=== PATIENT | female | born 1980 | race Caucasian/White ===

== ENCOUNTER 2016-09-29 07:10 | Emergency (ER) | payer OTHER ==
[~2016-09-29] VITALS: Ht 160 cm; Wt 67.0 kg
[2016-09-29 07:12] VITALS: Ht 160 cm; Wt 67.0 kg
[2016-09-29] MEDS ORDERED: morphine 4 MG/ML VIAL IV STA (07:35)
[2016-09-29] MEDS ORDERED: SOD CHLORIDE 0.9% 1,000 ML IV STA (07:35)
[2016-09-29] MEDS ORDERED: ONDANSETRON 4 MG INJ IV STA (07:35)
[2016-09-29] MEDS ORDERED: HYDROmorphONE 1 MG/ML SYG IV STA (08:14)
[2016-09-29 08:28] LABS: ADD SCAN DIFF NO
--- NOTE | 2016-09-29 08:32 | ERD ---
ER Documentation Chief Complaint Date/Time DATE: 09/29/16 TIME: 08:29 Chief Complaint AP, HX FIBROIDS HPI This is a 36-year-old female history of fibroids presenting to the emergency department complaining of severe abdominal pain in the lower quadrant since this morning. Patient rates the pain as sharp,crampy 10 out of 10 and describes it as unbearable. Patient denies nausea, vomiting, diarrhea, constipation. She states her last meal was last night. She states that she had a bowel movement earlier today and was normal. Patient states that she took 800 mg of ibuprofen about an hour ago. She states that she just started taking Wellbutrin about 1 week ago. Patient states that she has a large fibroid in which she is in the process of trying to get outpatient hysterectomy however it has been taking too long for her. She states that she has been on her menstrual period for about more than 1 week and states that she uses 4 tampons per day. She states " I am worried it is my appendix." ROS All systems reviewed and are negative except as per history of present illness. Medications Home Meds Active Scripts Ibuprofen* (Ibuprofen*) 800 Mg Tab, 800 MG PO Q6H Y for PAIN, #30 TAB Prov:GRISELDA LARA PA-C 09/29/16 Hydrocodone/Acetaminophen ([place] 5-325 Tablet) 1 Each Tablet, 1 EACH PO Q6, #10 TAB Prov:GRISELDA LARA PA-C 09/29/16 Physical Exam Vitals Vital Signs Date Time Temp Pulse Resp B/P Pulse Ox O2 Delivery O2 Flow Rate FiO2 09/29/16 07:12 98.1 68 18 140/66 99 Physical Exam GENERAL: well-developed/well-nourished, in no apparent distress, non-toxic appearing HENT: NC/AT, moist mucous membranes EYES: Conjunctiva normal NECK: Supple, no lymphadenopathy PULM: CTA bilaterally, no rales, rhonchi, or wheezing heard CV: Normal S1S2, RRR, good capillary refill GI: Soft, non-distended, tender to palpation in all quadrants, mostly in the pelvic region Normal bowel sounds, no masses or organomegaly felt on exam No gross peritonitis, no bruits Negative Rovsing, negative Armijo, negative McBurney's point, Negative CVAT BACK: No masses EXT: No clubbing, cyanosis, or edema NEURO: Alert and Orientated SKIN: Intact, normal turgor PSYCH: Normal mood and mentation Result Diagram: 09/29/16 0819 09/29/16 0819 Results 24 hrs Laboratory Tests Test 09/29/16 08:15 09/29/16 08:19 Urine Color LT. YELLOW Urine Clarity CLEAR Urine pH 6.0 Urine Specific [place] 1.020 Urine Ketones 40 Urine Nitrite NEGATIVE Urine Bilirubin 1+ Urine Ictotest NEGATIVE Urine Urobilinogen 0.2 E.U./dL Urine Leukocyte Esterase NEGATIVE Urine Hemoglobin NEGATIVE Urine Glucose NEGATIVE% Urine Total Protein NEGATIVE White Blood Count 13.110^3/ul Red Blood Count 4.1310^6/ul Hemoglobin 13.6g/dl Hematocrit 40.0% Mean Corpuscular Volume 96.9fl Mean Corpuscular Hemoglobin 32.9pg Mean Corpuscular Hemoglobin Concent 34.0g/dl Red Cell Distribution Width 12.6% Platelet Count 35221^3/UL Mean Platelet Volume 11.3fl Neutrophils % 88.3% Lymphocytes % 5.7% Monocytes % 4.6% Eosinophils % 0.7% Basophils % 0.2% Nucleated Red Blood Cells % 0.0/100WBC Neutrophils # 11.510^3/ul Lymphocytes # 0.810^3/ul Monocytes # 0.610^3/ul Eosinophils # 0.110^3/ul Basophils # 0.010^3/ul Nucleated Red Blood Cells # 0.010^3/ul Sodium Level 141mmol/L Potassium Level 4.0mmol/L Chloride Level 104mmol/L Carbon Dioxide Level 22mmol/L Anion Gap 19 Blood Urea Nitrogen 17mg/dl Creatinine 0.59mg/dl Glucose Level 98mg/dl Calcium Level 9.1mg/dl Total Bilirubin 0.2mg/dl Direct Bilirubin 0.00mg/dl Indirect Bilirubin 0.2mg/dl Aspartate Amino Transf (AST/SGOT) 16IU/L Alanine Aminotransferase (ALT/SGPT) 22IU/L Alkaline Phosphatase 75IU/L Total Protein 7.8g/dl Albumin 3.9g/dl Globulin 3.90g/dl Albumin/Globulin Ratio 1.00 Lipase 24U/L Current Medications Medications (Trade) Dose Ordered Sig/Yoel Route PRN Reason Start Time Stop Time Status Last Admin Dose Admin Sodium Chloride (NS) 1,000 ml @ 1,000 mls/hr Q1H STAT IV 09/29/16 07:35 09/29/16 08:34 DC 09/29/16 08:02 Morphine Sulfate (morphine) 6 mg ONCE STAT IV 09/29/16 07:35 09/29/16 07:39 DC 09/29/16 08:03 Ondansetron HCl (Zofran Inj) 4 mg ONCE STAT IV 09/29/16 07:35 09/29/16 07:39 DC 09/29/16 08:05 Hydromorphone HCl (Dilaudid) 0.5 mg ONCE STAT IV 09/29/16 08:14 09/29/16 08:15 DC 09/29/16 08:20 IV Flush 10 ml 10 ml STK-MED ONCE .ROUTE 09/29/16 09:02 09/29/16 09:03 DC Sodium Chloride (NS) 100 ml @ ud STK-MED ONCE .ROUTE 09/29/16 09:02 09/29/16 09:03 DC Iohexol (Omnipaque 300mg/ ml) 150 ml STK-MED ONCE .ROUTE 09/29/16 09:02 09/29/16 09:03 DC Procedures/MDM This is a 36-year-old female history of fibroids presenting to the emergency department complaining of severe abdominal pain in the lower quadrant since this morning, likely due to her uterine fibroids and right ovarian hemorrhagic cyst. There was no evidence of appendicitis, diverticulitis, small or large bowel obstruction, ovarian torsion or ruptured ovarian cyst at this time. IV access was established in the ED, patient was given Dilaudid, morphine and Zofran. Patient's pain stabilized in the ED. Lab work was drawn. CBC showed mild leukocytosis likely due to stress reaction. CMP did not show any evidence of renal, liver, or electrolyte abnormalities. Lipase was normal. UA did not show any evidence of hemoglobin or urinary tract infection. Patient will need to follow-up with [facility] for [facility] outpatient. Patient is stable for discharge her home with precautions to return to emergency room for any worsening signs or symptoms. Patient understands and agrees with this plan CT abd and pelvis without contrast: 1. CT findings which may represent a leiomyomatous uterus with a right adnexal cystic structure. Further evaluation with a pelvic ultrasound is recommended. 2. Mild amount of free fluid. 3. Stool filled large bowel. 4. Intrauterine device identified. Pelvic ultrasound: 1. The uterus is enlarged and demonstrates multiple fibroids measuring up to 6.8 cm. 2. IUD is seen within the lower uterine segment. The endometrium is not well evaluated, as above. 3. Right ovary demonstrates a 3.7 cm hemorrhagic cyst. 4. Tubular structure is identified in the right adnexa, suggestive of hydrosalpinx. 5. Left ovary is obscured by bowel gas. No left adnexal mass is identified. 6. Nonspecific small to mild amount of pelvic free fluid is present. Departure Diagnosis: Primary Impression: Acute pain in female pelvis Additional Impression: Uterine fibroid Condition: Stable GRISELDA LARA PA-C September 29, 2016 08:32
[2016-09-29 08:35] LABS: BASOPHILS % 0.2 % (0.0-2.0); EOSINOPHILS # 0.1 10^3/ul (0.0-0.5); EOSINOPHILS % 0.7 % (0.0-7.0); HEMOGLOBIN 13.6 g/dl (12.0-16.0); LYMPHOCYTES # 0.8 10^3/ul (0.8-2.9); LYMPHOCYTES % 5.7 % (15.0-51.0); MEAN CORPUSCULAR HEMOGLOBIN 32.9 pg (29.0-33.0); MEAN CORPUSCULAR VOLUME 96.9 fl (82.0-101.0); MEAN PLATELET VOLUME 11.3 fl (7.4-10.4); MONOCYTE # 0.6 10^3/ul (0.3-0.9); MONOCYTES % 4.6 % (0.0-11.0); NEUTROPHIL # 11.5 10^3/ul (1.6-7.5); NEUTROPHILS % 88.3 % (39.0-77.0); PLATELET COUNT 228 10^3/UL (140-415); RED BLOOD COUNT 4.13 10^6/ul (4.20-5.40); RED CELL DISTRIBUTION WIDTH 12.6 % (11.5-14.5); WHITE BLOOD COUNT 13.1 10^3/ul (4.8-10.8)
[2016-09-29 08:43] LABS: ADD UMIC NO; URINE BILIRUBIN (Dip) 1+ (NEGATIVE); URINE BLOOD (Dip) NEGATIVE (NEGATIVE); URINE COLOR LT. YELLOW (YELLOW); URINE GLUCOSE (Dip) NEGATIVE (NEGATIVE); URINE KETONES (Dip) 40 (NEGATIVE); URINE LEUKOCYTE ESTERASE (Dip) NEGATIVE (NEGATIVE); URINE NITRITE (Dip) NEGATIVE (NEGATIVE); URINE TOTAL PROTEIN (Dip) NEGATIVE (NEGATIVE); URINE UROBILINOGEN (Dip) 0.2 E.U./dL (0.1-1.0)
[2016-09-29 08:50] LABS: ALBUMIN 3.9 g/dl (3.3-4.9)
[2016-09-29 08:53] LABS: BILIRUBIN,INDIRECT 0.2 mg/dl (0-1.1); BILIRUBIN,TOTAL 0.2 mg/dl (0.2-1.3); CREATININE 0.59 mg/dl (0.44-1.00); TOTAL PROTEIN 7.8 g/dl (6.1-8.1)
[2016-09-29 08:54] LABS: CALCIUM 9.1 mg/dl (8.4-10.2)
[2016-09-29 08:57] LABS: ICTOTEST NEGATIVE (NEGATIVE)
[2016-09-29] MEDS ORDERED: IOHEXOL 300MG/ML 150 ML BTL ONE (09:02)
[2016-09-29] MEDS ORDERED: SOD CHLORIDE 0.9% 100 ML ONE (09:02)
--- NOTE | 2016-09-29 09:45 | RADRPT ---
PROCEDURE: CT of the abdomen and pelvis CLINICAL INDICATION: Abdominal pain TECHNIQUE: The study was performed utilizing a GE [employer] 64-slice multidetector CT scanner. Dir ect spiral axial sections were obtained through the abdomen and pelvis with intravenous contrast. Af ter administration of 70 cc of Omnipaque-300, postcontrast images were obtained. Coronal and sagitt al reformatted images were performed. The CTDI vol is 15.13 mGy and the DLP is 886.76 mGy-cm. The i mages were reviewed on a PACS workstation. COMPARISON: No prior studies are available for comparison. FINDINGS: CT abdomen: The lung bases are clear. The heart is not enlarged. No pericardial effusion is seen. The liver is normal in size and contour. No focal liver lesions or intrahepatic biliary dilatation is seen. The gallbladder is normal. No common bile duct dilatation is seen. A 6 mm nonspecific low a ttenuation lesion in the inferior tip of the spleen is seen. The spleen, pancreas, and adrenal gland s are otherwise unremarkable in appearance. The kidneys are normal in size and contour enhance dayan lly. No evidence of hydronephrosis or nephrolithiasis is seen. The stomach is unremarkable. The large bowel is stool-filled. A calcification is seen in the cecum measuring 9 mm in size and may represent a fecalith. The small and large bowel are otherwise unremar kable in course and caliber. No inflammatory changes in the periappendiceal region is seen. No enla rged lymph nodes or fluid collections are seen. The aorta is normal in caliber. CT pelvis: No pelvic adenopathy, or focal fluid collection is seen. There is a mild amount of free fluid. The urinary bladder is normal. The uterus is enlarged and heterogeneous. Multiple uterine masses are seen. A septated right adnexal cystic structure is seen measuring 3.7 x 2 cm in size. A n intrauterine device is identified. No osseous lesions are seen. IMPRESSION: 1. CT findings which may represent a leiomyomatous uterus with a right adnexal cystic structure. F urther evaluation with a pelvic ultrasound is recommended. 2. Mild amount of free fluid. 3. Stool filled large bowel. 4. Intrauterine device identified. RPTAT: HPNM Manolo Guevara, Physician Date Time Electronically viewed and signed by Manolo Guevara, Physician on 09/29/2016 09:45 /
[2016-09-29] MEDS ORDERED: HYDR-906 PO (10:13)
[2016-09-29] MEDS ORDERED: IBUP800T25 PO (10:13)
--- NOTE | 2016-09-29 10:13 | RADRPT ---
PROCEDURE: US Pelvis CLINICAL INDICATION: Pain TECHNIQUE: Sonographic evaluation of the pelvis was performed utilizing both transabdominal and tr ansvaginal technique. Curved array transabdominal transducer technique as well as a high frequency endovaginal probe was utilized. Images were reviewed on the high-resolution PACS workstation. COMPARISON: None available FINDINGS: The uterus is enlarged and heterogeneous, measuring 16.0 x 9.8 x 12.3 cm cm in dimension. The uteru s is anteverted in normal position. Multiple uterine fibroids are identified measuring up to 6.8 c m. IUD is identified within the lower uterine segment. The endometrium is not well evaluated secon steve to distortion of the uterine anatomy by multiple fibroids. The right ovary measures 5.2 x 3.8 x 4.1 cm in dimension, and demonstrates a 3.7 cm hemorrhagic cyst . Tubular appearing structure is identified in the right adnexa, with maximal diameter of 1.9 cm, s uggestive of hydrosalpinx. There is no right ovarian torsion. Left ovary is obscured by bowel gas. No left adnexal mass is identified. Nonspecific small amount of pelvic free fluid is present. IMPRESSION: 1. The uterus is enlarged and demonstrates multiple fibroids measuring up to 6.8 cm. 2. IUD is seen within the lower uterine segment. The endometrium is not well evaluated, as above. 3. Right ovary demonstrates a 3.7 cm hemorrhagic cyst. 4. Tubular structure is identified in the right adnexa, suggestive of hydrosalpinx. 5. Left ovary is obscured by bowel gas. No left adnexal mass is identified. 6. Nonspecific small to mild amount of pelvic free fluid is present. RPTAT: QQ .Hernando Nowak MD, MD Date Time Electronically viewed and signed by .Hernando Nowak MD, MD on 09/29/2016 10:13 .R/
== END 2016-09-29 10:41 | disposition home or self-care (01) ==
LOC: FTE 07:10
DX: R10.2 Pelvic and perineal pain (principal); D25.9 Leiomyoma of uterus, unspecified
CPT/HCPCS: 74177; 76830; 76856; 80053; 81003; 83690; 85025; 96374; 96375; J1170; J2270; J2405; J7030; Q9967; Z7502; Z7610